=== PATIENT | male | born 1945 ===

== ENCOUNTER 2017-03-09 08:21 | Emergency (ER) | payer BC ==
--- NOTE | 2017-03-09 09:07 | C.PDOC ---
History Of Present Illness 71 yr old male with PMHx of HTN cholesterol and prostate cancer last radiation in June 2016, presents to the ER stating at the end of urination he feels superpubic discomfort, also complains of abdominal pain which radiates to the back. Patient states he is also having trouble moving his bowels, states he strains but to no avail and feels like his abdomen is distended. Also states he feels nauseous when pushed on the abdomen but other cristina denies nausea. Also denies fever, chills, vomiting, weakness or numbness. Time Seen by Provider: 03/09/17 08:59 Chief Complaint (Nursing): Abdominal Pain History Per: Patient History/Exam Limitations: no limitations Onset/Duration Of Symptoms: Days Past Medical History Reviewed: Historical Data, Nursing Documentation, Vital Signs Vital Signs: Last Vital Signs Temp 97.5 F L 03/09/17 13:52 Pulse 53 L 03/09/17 13:52 Resp 17 03/09/17 13:52 BP 168/76 H 03/09/17 13:52 Pulse Ox 100 03/09/17 13:52 - Medical History PMH: HTN, Hypercholesterolemia, Hypothyroidism - [facility] Procedures TETANUS TOXOID ADMINIST (02/21/15) Family History: States: No Known Family Hx - Social History Hx Tobacco Use: No Hx Alcohol Use: Yes Hx Substance Use: No - Immunization History Hx Tetanus Toxoid Vaccination: Yes Hx Influenza Vaccination: No Hx Pneumococcal Vaccination: No Review Of Systems Review Of Systems: ROS cannot be obtained secondary to pt's inabilty to answer questions. Constitutional: Negative for: Fever, Chills Gastrointestinal: Positive for: Abdominal Pain (Superpubic discomfort), Constipation. Negative for: Vomiting Neurological: Negative for: Weakness, Numbness Physical Exam - Physical Exam Appears: Non-toxic, In Acute Distress (Uncomfortable ) Skin: Warm, Dry, No Rash Head: Atraumatic, Normacephalic Oral Mucosa: Moist Chest: Symmetrical, No Tenderness Cardiovascular: Rhythm Regular, No Murmur Respiratory: Normal Breath Sounds, No Rales, No Rhonchi, No Stridor, No Wheezing Gastrointestinal/Abdominal: No Tenderness, Distention, Other ((+) Firm ) Back: Normal Inspection, No CVA Tenderness Extremity: Normal ROM, No Swelling Neurological/Psych: Oriented x3, Normal Speech, Normal Motor ED Course And Treatment - Laboratory Results Result Diagrams: 03/09/17 09:31 03/09/17 09:31 O2 Sat by Pulse Oximetry: 99 (RA ) Pulse Ox Interpretation: Normal - CT Scan/US CT - Abd & Pelvis Other Rad Studies (CT/US): Read By Radiologist, Radiology Report Reviewed CT/US Interpretation: PROCEDURE: CT Abdomen and Pelvis without Oral or IV contrast. HISTORY: abd pain. COMPARISON: None available. TECHNIQUE: Contiguous axial images of the abdomen and pelvis. No oral or IV contrast administered. Coronal and Sagittal reformats generated and reviewed. Radiation dose: Total exam DLP = 397.33 mGy-cm. This CT exam was performed using one or more of the following dose reduction techniques: Automated exposure control, adjustment of the mA and/or kV according to patient size, and/or use of iterative reconstruction technique. FINDINGS: There is limited evaluation of the solid organs without the administration of IV contrast. LOWER THORAX: 2 mm calcified granuloma at the left lung base. No visible consolidation, pleural effusion, or pneumothorax. LIVER: Unremarkable unenhanced appearance. GALLBLADDER AND BILE DUCTS: Unremarkable unenhanced appearance. PANCREAS: Unremarkable unenhanced appearance. SPLEEN: Unremarkable unenhanced appearance. ADRENALS: Unremarkable unenhanced appearance. KIDNEYS AND URETERS : 4 mm proximal right ureteral calculus (series 3, image 74) with proximal hydroureteronephrosis. Additionally, there is a 5 mm calculus at the left UVJ with proximal hydroureteronephrosis. Right perinephric stranding. BLADDER: The urinary bladder appears unremarkable. REPRODUCTIVE: Prostate calcifications. APPENDIX: The appendix appears within normal limits of caliber. No secondary signs of acute appendicitis. BOWEL: The stomach is nondistended. Lack of oral contrast limits evaluation for bowel pathology. The bowel loops appear within normal limits of caliber without evidence of intestinal obstruction. Diverticulosis without CT evidence of acute diverticulitis. PERITONEUM: No significant free fluid. No definite free air. LYMPH NODES: No bulky lymphadenopathy identified. VASCULATURE: Scattered atherosclerotic calcifications. No aortic aneurysm. BONES: 7 mm anterolisthesis of L4 on L5. Multilevel degenerative changes. Osseous demineralization. 6 mm sclerotic focus within L3 vertebral body, possibly bone island. OTHER FINDINGS: None. IMPRESSION: 4 mm proximal right ureteral calculus with proximal hydroureteronephrosis. Right perinephric stranding. 5 mm calculus at the left UVJ with proximal hydroureteronephrosis. Additional findings as above. Medical Decision Making Medical Decision Making: PLAN: * CT - Abd & Pelvis * X-Ray - Obstructive Series * EKG * CBC * CMP * Urinalysis * PO * Maalox PO * Zofran IVP * Sodium Chloride IV spoke with Dr. Gastelum, recommended patient be discharged with abx and Flomax. Disposition Discussed With Dr.: Ronald Gastelum Doctor Will See Patient In The: Office Counseled Patient/Family Regarding: Studies Performed, Diagnosis, Need For Followup, Rx Given - Disposition Referrals: Ronald Gastelum MD [Staff Provider] - Disposition: HOME/ ROUTINE Disposition Time: 12:54 Condition: IMPROVED Prescriptions: Cefaclor 500 mg PO BID #20 capsule Ibuprofen [Motrin] 600 mg PO TID PRN #30 tab PRN Reason: Pain, Moderate (4-7) Psyllium Husk/Aspartame [Metamucil Fiber Singles Packet] 3.4 gm PO DAILY #12 powd.pack Tamsulosin [Flomax] 0.4 mg PO DAILY #5 cap Instructions: Renal Colic (ED), Constipation (ED) Forms: [facility] (Mongolian) - POA Present On Arrival: None - Clinical Impression Clinical Impression: Renal colic, bilateral, Constipation - Scribe Statement The provider has reviewed the documentation as recorded by the Bruno Gabriel Provider Attestation: All medical record entries made by the Jasmynibadrien were at my direction and personally dictated by me. I have reviewed the chart and agree that the record accurately reflects my personal performance of the history, physical exam, medical decision making, and the department course for this patient. I have also personally directed, reviewed, and agree with the discharge instructions and disposition.
[2017-03-09] MEDS ORDERED: Sodium Chloride 0.9% 500 ML IV ONE ×2 (09:23→12:49)
[2017-03-09] MEDS ORDERED: Aluminum Hydroxide/Magnesium Hydroxide Susp (30 mL) PO STA (09:23)
[2017-03-09] MEDS ORDERED: Belladonna-Phenobarbital PO STA (09:23)
[2017-03-09] MEDS ORDERED: Aluminum Hydroxide/Magnesium Hydroxide Susp (30 mL) ONE (09:28)
[2017-03-09] MEDS ORDERED: Sodium Chloride 0.9% 1,000 ML ONE ×2 (09:28→13:05)
[2017-03-09] MEDS ORDERED: Belladonna-Phenobarbital ONE (09:28)
[2017-03-09 09:35] LABS: BASO % 0.4 % (0.0-2.0); EOS # 0.1 K/uL (0.0-0.7); EOS % 0.7 % (0.0-4.0); HEMOGLOBIN 13.9 g/dL (12.0-18.0); LYMPH # 0.7 K/uL (1.0-4.3); MEAN CORPUSCULAR HEMOGLOBIN 31.8 pg (27.0-31.0); MEAN PLATELET VOLUME 7.5 fL (7.2-11.7); MONO # 0.7 K/uL (0.0-0.8); MONO % 8.6 % (0.0-10.0); NEUT # 6.6 K/uL (1.8-7.0); NEUT % 81.3 % (50.0-75.0); PLATELET COUNT 190 K/uL (130-400); RBC 4.36 Mil/uL (4.40-5.90); RED CELL DISTRIBUTION WIDTH 12.7 % (11.5-14.5); WHITE BLOOD COUNT 8.2 K/uL (4.8-10.8)
[2017-03-09 09:35] LABS: URINE BILIRUBIN NEGATIVE (NEGATIVE); URINE BLOOD 3+ (NEGATIVE); URINE CLARITY Clear (Clear); URINE COLOR Yellow (YELLOW); URINE GLUCOSE (UA) NORMAL (Normal); URINE LEUKOCYTE ESTERASE NEG Leu/uL (Negative); URINE NITRATE NEGATIVE (NEGATIVE); URINE PROTEIN NEGATIVE (NEGATIVE); URINE UROBILINOGEN NORMAL mg/dL (0.2-1.0)
[2017-03-09 09:46] LABS: ALBUMIN 4.2 g/dL (3.5-5.0)
[2017-03-09 09:49] LABS: ALB/GLOB RATIO 1.2 (1.0-2.1); ALT/SGPT 35 U/L (21-72); AST/SGOT 33 U/L (17-59); BLOOD UREA NITROGEN 15 mg/dL (9-20); GFR AFRICAN-AMERICAN > 60; GFR NON-AFRICAN AMERICAN > 60
[2017-03-09 09:50] LABS: CALCIUM 9.3 mg/dl (8.6-10.4); LIPASE 70 U/L (23-300)
[2017-03-09 10:28] LABS: BANDS 9 % (0-2); BASOPHIL 2 % (0-2); EOSINOPHIL 1 % (0-4); LYMPHOCYTE 8 % (20-40); MONOCYTE 6 % (0-10); NEUTROPHIL 72 % (50-75); PLATELET ESTIMATE NORMAL (NORMAL); REACTIVE LYMPHOCYTES 2 % (0-0); TOTAL CELLS COUNTED 100
--- NOTE | 2017-03-09 10:41 | CT ---
PROCEDURE: CT Abdomen and Pelvis without Oral or IV contrast. HISTORY: abd pain COMPARISON: None available. TECHNIQUE: Contiguous axial images of the abdomen and pelvis. No oral or IV contrast administered. Coronal and Sagittal reformats generated and reviewed. Radiation dose: Total exam DLP = 397.33 mGy-cm. This CT exam was performed using one or more of the following dose reduction techniques: Automated exposure control, adjustment of the mA and/or kV according to patient size, and/or use of iterative reconstruction technique. FINDINGS: There is limited evaluation of the solid organs without the administration of IV contrast. LOWER THORAX: 2 mm calcified granuloma at the left lung base. No visible consolidation, pleural effusion, or pneumothorax. LIVER: Unremarkable unenhanced appearance. GALLBLADDER AND BILE DUCTS: Unremarkable unenhanced appearance. PANCREAS: Unremarkable unenhanced appearance. SPLEEN: Unremarkable unenhanced appearance. ADRENALS: Unremarkable unenhanced appearance. KIDNEYS AND URETERS: 4 mm proximal right ureteral calculus (series 3, image 74) with proximal hydroureteronephrosis. Additionally, there is a 5 mm calculus at the left UVJ with proximal hydroureteronephrosis. Right perinephric stranding. BLADDER: The urinary bladder appears unremarkable. REPRODUCTIVE: Prostate calcifications. APPENDIX: The appendix appears within normal limits of caliber. No secondary signs of acute appendicitis. BOWEL: The stomach is nondistended. Lack of oral contrast limits evaluation for bowel pathology. The bowel loops appear within normal limits of caliber without evidence of intestinal obstruction. Diverticulosis without CT evidence of acute diverticulitis. PERITONEUM: No significant free fluid. No definite free air. LYMPH NODES: No bulky lymphadenopathy identified. VASCULATURE: Scattered atherosclerotic calcifications. No aortic aneurysm. BONES: 7 mm anterolisthesis of L4 on L5. Multilevel degenerative changes. Osseous demineralization. 6 mm sclerotic focus within L3 vertebral body, possibly bone island. OTHER FINDINGS: None. IMPRESSION: 4 mm proximal right ureteral calculus with proximal hydroureteronephrosis. Right perinephric stranding. 5 mm calculus at the left UVJ with proximal hydroureteronephrosis. Additional findings as above.
[2017-03-09] MEDS ORDERED: cefTRIAXone IV 1 gm in Dextros 50 ML IVPB ONE ×2 (12:49→13:05)
--- NOTE | 2017-03-09 12:51 | RAD ---
PROCEDURE: Radiographs of the chest and abdomen (obstructive series) HISTORY: Abdominal pain COMPARISON: No prior. TECHNIQUE: AP radiograph of the chest, with upright and supine radiographs of the abdomen. FINDINGS: CHEST: Lungs: Clear. Cardiovascular: Normal size heart. No pulmonary vascular congestion. Pleura: No pleural fluid. No pneumothorax. Other findings: None. ABDOMEN AND PELVIS: Bowel: Constipation without fecal impaction or obstruction. Free air: None. Bones: Unremarkable. Other findings: None. IMPRESSION: No acute findings related to/accounting for the clinical presentation.
[2017-03-09 15:08] VITALS: BP 160/79; PULSE 74; RESP 20; TEMP 97.7; O2SAT 97
--- NOTE | 2017-03-10 08:12 | CARD ---
APPROVED REPORT EKG Measurement Heart [id number] ND [id number] [id number] <Conclusion> Sinus bradycardia Otherwise normal ECG
== END 2017-03-09 15:08 | disposition home or self-care (01) ==
LOC: C.ER 08:21
DX: N20.1 Calculus of ureter (principal); K59.00 Constipation, unspecified; I10 Essential (primary) hypertension; E78.00 Pure hypercholesterolemia, unspecified
CPT/HCPCS: 74022; 74176; 80053; 81001; 83690; 85025; 87086; 93005; 94770; 96365; 96375; 99285; J0696; J2405; J7040